=== PATIENT | female | born 2000 ===

== ENCOUNTER 2024-07-21 14:48 | Outpatient (CLI) | payer OTHER | END 2024-07-21 14:49 | disposition home or self-care (01) | LOC: PRENATAL 14:48 | PROVIDERS: ATTEND Obstetrics & Gynecology Maternal & Fetal Medicine | DX: O44.00 Complete placenta previa NOS or without hemorrhage, unspecified trimester (principal); O99.019 Anemia complicating pregnancy, unspecified trimester; Z3A.20 20 weeks gestation of pregnancy ==

== ENCOUNTER → 2024-10-14 16:15 | Outpatient (CLI) | payer OTHER | END | disposition home or self-care (01) | LOC: PRENATAL 16:15 | PROVIDERS: ATTEND Obstetrics & Gynecology Maternal & Fetal Medicine | DX: O26.849 Uterine size-date discrepancy, unspecified trimester (principal); O36.8130 Decreased fetal movements, third trimester, not applicable or unspecified; O99.019 Anemia complicating pregnancy, unspecified trimester; Z3A.33 33 weeks gestation of pregnancy ==